=== PATIENT | female | born 1990 | race Caucasian/White ===

== ENCOUNTER 2016-11-01 15:43 | Emergency (ER) | payer OTHER ==
[2016-11-01 16:02] VITALS: BP 93/55
--- NOTE | 2016-11-25 20:01 | UC ---
Isra Lucas Alok, scribed for Evonne Huggins DO on 11/25/16 at 2001 . Skin Complaint HPI - HPI Summary HPI Summary: 26 y/o female presents with c/o sinus pain, congestion, WALDRON, nasal discharge, cough, ear pressure, for over the last 4 weeks. Pt also presents with c/o painful red lesion on her right forearm. Pt is an IV drug user, in outpatient treatment for heroin addiction. Pt reports that she recently slipped and started using again briefly within the past two weeks. She states that she has had rashes like this in the past, including abscesses as a result of IV drug use. She also reports that she is back in treatment now and doing better. She denies CP, SOB, fever, chills, N/V, abd pain, urinary changes, muscle aches. - History of Current Complaint Chief Complaint: UCRespiratory Time Seen by Provider: 11/01/16 16:20 Stated Complaint: SINUS CONGESTION, AND RASH Hx Obtained From: Patient Hx Last Menstrual Period: 10/28/16 ?: No Onset/Duration: Gradual Onset Skin Exposure Onset/Duration: Weeks Ago Timing: Constant Onset Severity: Moderate Current Severity: Moderate Pain Intensity: 6 Pain Scale Used: 0-10 Numeric Location: Discrete - Right arm Character: Redness Aggravating: Nothing Alleviating: Nothing Associated Signs & Symptoms: Positive: Cough, Rash. Negative: Nausea, Vomiting , Difficulty Breathing, Fever, Chills, Chest Pain, Abdominal Pain, Lightheadedness, Drainage, Red Streaks - Allergy/Home Medications Allergies/Adverse Reactions: Allergies Allergy/AdvReac Type Severity Reaction Status Date / Time Tree Nuts Allergy Anaphylatic Verified 11/01/16 16:03 Shock Review of Systems Constitutional: Negative Skin: Rash Eyes: Negative ENT: Nasal Discharge Respiratory: Cough Cardiovascular: Negative Gastrointestinal: Negative Genitourinary: Negative Motor: Negative Neurovascular: Negative Musculoskeletal: Negative Neurological: Headache Psychological: Negative All Other Systems Reviewed And Are Negative: Yes PMH/Surg Hx/FS Hx/Imm Hx - Additional Past Medical History Additional PMH: h/o iv drug use Cardiovascular History Of: Reports: Cardiac Disorders - HEART MURMUR - Surgical History Surgical History: Yes Surgery Procedure, Year, and Place: T&A - Family History Known Family History: Negative: Cardiac Disease, Hypertension, Diabetes - Social History Alcohol Use: Occasionally Substance Use Type: Heroin Smoking Status (MU): Heavy Every Day Tobacco Smoker Type: Cigarettes Amount Used/How Often: 1 PPD Length of Time of Smoking/Using Tobacco: 9 Years Have You Smoked in the Last Year: Yes When Did the Patient Quit Smoking/Using Tobacco: 9 MOS AGO Cessation Counseling: Patient Advised to Stop - Immunization History Most Recent Influenza Vaccination: Not the Season Physical Exam Triage Information Reviewed: Yes Appearance: Well-Appearing, No Pain Distress, Well-Nourished Vital Signs: Initial Vital Signs Temp 99.4 F 11/01/16 15:57 Pulse 78 11/01/16 15:57 Resp 18 11/01/16 15:57 BP 93/55 11/01/16 15:57 Pulse Ox 99 11/01/16 15:57 Vital Signs Reviewed: Yes Eyes: Positive: Conjunctiva Clear ENT: Positive: Pharynx normal, Nasal congestion, Nasal drainage, TMs normal, Tonsillar swelling, Other: - Sinus tenderness. Negative: Tonsillar exudate, Trismus, Muffled/hoarse voice Neck: Positive: Supple, Nontender Respiratory: Positive: Lungs clear, Normal breath sounds, No respiratory distress, No accessory muscle use Cardiovascular: Positive: RRR, No Murmur Musculoskeletal Exam: Normal Neurological: Positive: Alert, Muscle Tone Normal Psychological Exam: Normal Psychological: Positive: Age Appropriate Behavior Skin: Positive: Other - 8x10 cm erythemal area on her forearm that is possive for calor, and tenderness. Additionally, area of induration that is 4x3 cm in the center of the lesion. The surrounding forearm is notable for injection sites. No fluctulance, no drainage. Course/Dx - Differential Diagnoses - Skin Complaint Differential Diagnoses: Abscess, Cellulitis, Tinea, Urticaria - Diagnoses Provider Diagnoses: sinsusitis, abscess Discharge - Discharge Plan Condition: Stable Disposition: HOME Prescriptions: Cephalexin CAP* [Keflex CAP*] 500 mg PO BID #20 cap Sulfamethox/Trimethoprim DS* [Bactrim DS 800/160 TAB*] 1 tab PO BID #20 tab Patient Education Materials: Sinusitis (ED), Abscess (ED) Referrals: Jamir House MD [Medical Doctor] - (Follow up in 2 days for re-evaluation. This follow up visit is important, we want to know that you are improving. If you can not get in with your PCP, return here for re-evaluation. ) Additional Instructions: TRY USING THE NETTI POT IN THE MORNINGS DISCUSSED. YOU MUST ALWAYS USE CLEAN WATER. REMEMBER, POSTURE IS AN IMPORTANT FACTOR IN SINUS DRAINAGE. MOVE YOUR NECK, BREATHE. ANTIBIOTIC THERAPY:FOR BOTH SINUS AND SKIN INFECTION You have been given an antibiotic prescription. It's important that you take all the medication, unless instructed otherwise by your physician. Failure to complete the entire course can result in relapse of your condition. Common side effects of antibiotics include nausea, intestinal cramping, or diarrhea. Women may develop vaginal yeast infections, and babies can get yeast (thrush) in the mouth following the use of antibiotics. Contact your physician if you develop significant side effects from this medication. Allergy to this antibiotic can result in hives, wheezing, faintness, or itching. If symptoms of allergy occur, stop the medication and call the doctor. ANY TIME YOU TAKE AN ANTIBIOTIC, IT IS IMPORTANT TO REPLENISH THE BODY'S BALANCE OF "GOOD" BACTERIA BY EATING HIGH QUALITY CULTURED FOOD SUCH YOGURT, SAURKRAUT OR LESLEY CHI AND/OR TAKING A PROBIOTIC SUPPLEMENT. Follow up in 2 days for re-evaluation. This follow up visit is important, we want to know that you are improving. If you can not get in with your PCP, return here for re-evaluation. The documentation as recorded by the Isra urrutia Alok accurately reflects the service I personally performed and the decisions made by me, Evonne Huggins DO.
== END 2016-11-01 17:47 | disposition home or self-care (01) ==
LOC: UCEAST 15:43
DX: J32.9 Chronic sinusitis, unspecified (principal); L02.413 Cutaneous abscess of right upper limb; F11.90 Opioid use, unspecified, uncomplicated; F17.210 Nicotine dependence, cigarettes, uncomplicated
CPT/HCPCS: 99212; G0463

== ENCOUNTER → 2017-01-06 00:17 | Emergency (ER) | payer MEDICAID, OTHER ==
[2017-01-06 01:10] VITALS: BP 108/69
[2017-01-06 02:23] LABS: Hematocrit 41 % (35-47); Hemoglobin 13.2 g/dl (12.0-16.0); Mean Corpuscular HGB Conc 33 g/dl (31-36); Mean Corpuscular Hemoglobin 26 pg (27-31); Mean Corpuscular Volume 81 fL (80-97); Mean Platelet Volume 7 um3 (7.4-10.4); Red Cell Distribution Width 16 % (10.5-15); White Blood Count 11.8 10^3/ul (3.5-10.8)
[2017-01-06 02:35] LABS: Acetaminophen < 15 mcg/mL; Alcohol < 10 mg/dL (<10); Salicylate < 2.50 mg/dL (<30)
[2017-01-06 02:36] LABS: ALT 101 U/L (7-52); AST 108 U/L (13-39); Alkaline Phosphatase 146 U/L (34-104); Anion Gap 7 mmol/L (2-11); BUN/Creatinine Ratio 13.3 (8-20); Blood Urea Nitrogen 8 mg/dL (6-24); CO2 Carbon Dioxide 25 mmol/L (22-32); Calcium 9.7 mg/dL (8.6-10.3); Chloride 102 mmol/L (101-111); EGFR African American 154.2 (>60); EGFR Non-African American 119.9 (>60); Globulin 4.7 g/dL (2-4); Glucose 89 mg/dL (70-100); Potassium 3.7 mmol/L (3.5-5.0); Sodium 134 mmol/L (133-145); Total Protein 8.7 g/dL (6.4-8.9)
--- NOTE | 2017-01-06 02:38 | ED ---
Substance Abuse/Use - HPI Summary HPI Summary: Patient RENNY after use or heroin and alcohol this afternoon at a hotel after being discharged from rehab. She states she feels OK and will go back to rehab after discharge. She denies N/V. She denies pain or WALDRON. She denies SI/HI or self injurious behavior. She denies previous depression or anxiety but endorses a long history of heroin use. - History Of Current Complaint Chief Complaint: EDSubstanceAbuse Stated Complaint: HEROIN USE Time Seen by Provider: 01/06/17 01:12 Hx Obtained From: Patient ?: No Onset/Duration of Drug/ETOH Abuse: Minutes Ingestion History: Type/Name Of Drug - heroin, Amount Ingested - unknown Overdose Characteristics: IV Timing Of Abuse: Daily Severity Initially: Moderate Severity Currently: Mild Aggravating Factor(s): Nothing Alleviating Factor(s): Nothing Associated Signs And Symptoms: Negative Related Hx: Drug/Alcohol Last Used @ - today, Possible Multi Drug Ingestion, Prior Drug Abuse Counseling/Admission - Risk Factor(s) Completed Suicide Risk Factors: Negative - Allergies/Home Medications Allergies/Adverse Reactions: Allergies Allergy/AdvReac Type Severity Reaction Status Date / Time No Known Allergies Allergy Verified 01/06/17 00:26 PMH/Surg Hx/FS Hx/Imm Hx Previously Healthy: Yes - Immunization History Date of Tetanus Vaccine: utd Date of Influenza Vaccine: unk Hx Pertussis Vaccination: No Immunizations Up to Date: Yes Infectious Disease History: No Infectious Disease History: Denies: Traveled Outside the [place] in Last 30 Days - Social History Occupation: Unemployed Lives: Alone Alcohol Use: Occasionally Hx Substance Use: Yes Substance Use Type: Reports: Cocaine, Heroin, Marijuana, Other Substance Use Comment - Amount & Last Used: pt using heroin 1/2 gm, and drinking vodka Hx Tobacco Use: Yes Smoking Status (MU): Light Every Day Tobacco Smoker Review of Systems Constitutional: Negative ENT: Negative Cardiovascular: Negative Gastrointestinal: Negative Genitourinary: Negative Positive: no symptoms reported, see HPI Musculoskeletal: Negative Skin: Negative Psychological: Normal All Other Systems Reviewed And Are Negative: Yes Physical Exam Triage Information Reviewed: Yes Vital Signs On Initial Exam: Initial Vitals Temp Pulse Resp BP Pulse Ox 102 F 122 16 108/69 98 01/06/17 00:57 01/06/17 00:57 01/06/17 00:57 01/06/17 00:57 01/06/17 00:57 Vital Signs Reviewed: Yes Appearance: Positive: Well-Appearing, Well-Nourished Skin: Positive: Warm, Skin Color Reflects Adequate Perfusion Head/Face: Positive: Normal Head/Face Inspection Eyes: Positive: EOMI, ANDREA, Conjunctiva Clear Cardiovascular: Positive: Normal, RRR - Thaira Coma Scale Coma Scale Total: 15 Diagnostics - Vital Signs Vital Signs Temp Pulse Resp BP Pulse Ox 01/06/17 00:57 102 F 122 16 108/69 98 - Laboratory Lab Results: Lab Results 01/06/17 Range/Units 00:43 WBC 11.8 H (3.5-10.8) 10^3/ul RBC 5.00 (4.0-5.4) 10^6/ul Hgb 13.2 (12.0-16.0) g/dl Hct 41 (35-47) % MCV 81 (80-97) fL MCH 26 L (27-31) pg MCHC 33 (31-36) g/dl RDW 16 H (10.5-15) % Plt Count 299 (150-450) 10^3/ul MPV 7 L (7.4-10.4) um3 Neut % (Auto) 92.6 H (38-83) % Lymph % (Auto) 5.9 L (25-47) % Hinds % (Auto) 1.0 (1-9) % Eos % (Auto) 0.2 (0-6) % Baso % (Auto) 0.3 (0-2) % Absolute Neuts (auto) 10.9 H (1.5-7.7) 10^3/ul Absolute Lymphs (auto) 0.7 L (1.0-4.8) 10^3/ul Absolute Monos (auto) 0.1 (0-0.8) 10^3/ul Absolute Eos (auto) 0 (0-0.6) 10^3/ul Absolute Basos (auto) 0 (0-0.2) 10^3/ul Absolute Nucleated RBC 0.01 10^3/ul Nucleated RBC % 0.1 Result Diagrams: 01/06/17 00:43 01/06/17 00:43 Lab Statement: Any lab studies that have been ordered have been reviewed, and results considered in the medical decision making process. Course/Dx - Course Course Of Treatment: RN attempted 4 times to obtain an IV. Patient eventually refused. labs were drawn, but IV was not patent. Labs look OK. Patient is stable and has a ride home. Provider encouraged no drug use and return to rehab [facility]. Records for rehab given to patient upon discharge. She has a ride home. - Diagnoses Differential Diagnosis/HQI/PQRI: Positive: Anxiety, Drug Abuse, Drug Withdrawal Provider Diagnoses: Drug abuse Discharge - Discharge Plan Condition: Stable Disposition: HOME Patient Education Materials: Adult Overdose (ED) Referrals: Non Staff,Doctor [Primary Care Provider] - Additional Instructions: Follow up with PCP. Recommended to attend rehabilitation. If symptoms become worse, come back to ED.
[2017-01-06 03:05] LABS: Urine Bilirubin Negative (Negative); Urine Glucose Negative (Negative); Urine Nitrite Negative (Negative)
[2017-01-06 03:29] LABS: Benzodiazepine Urine Screen Presumptive Positive (None Detect)
== END | disposition home or self-care (01) ==
LOC: ED 00:17 → MERGE 00:17
DX: F19.10 Other psychoactive substance abuse, uncomplicated (principal); F17.210 Nicotine dependence, cigarettes, uncomplicated
CPT/HCPCS: 36415; 80053; 80307; 80320; 80329; 81003; 83605; 84702; 85025; 93005; 99283; G0480

== ENCOUNTER 2017-01-17 14:54 | Emergency (ER) | payer OTHER ==
[2017-01-17 16:53] LABS: Hematocrit 37 % (35-47); Hemoglobin 12.3 g/dl (12.0-16.0); Mean Corpuscular HGB Conc 33 g/dl (31-36); Mean Corpuscular Hemoglobin 26 pg (27-31); Mean Corpuscular Volume 80 fL (80-97); Mean Platelet Volume 7 um3 (7.4-10.4); Red Blood Count 4.71 10^6/ul (4.0-5.4); Red Cell Distribution Width 16 % (10.5-15)
[2017-01-17 17:08] LABS: Albumin 3.9 g/dL (3.2-5.2); Calcium 9.4 mg/dL (8.6-10.3); EGFR African American 145.8 (>60); EGFR Non-African American 113.4 (>60); Globulin 4.5 g/dL (2-4); Potassium 3.8 mmol/L (3.5-5.0); Total Bilirubin 0.3 mg/dL (0.2-1.0); Total Protein 8.4 g/dL (6.4-8.9)
[2017-01-17 18:00] LABS: Urine Bacteria Absent (Absent); Urine Bilirubin Negative (Negative); Urine Glucose Negative (Negative); Urine Nitrite Negative (Negative)
[2017-01-17 18:22] VITALS: BP 100/65
[2017-01-17] MEDS ORDERED: Sulfamethox/Trimethoprim DS 800/160* TAB PO ONE (19:13)
--- NOTE | 2017-01-17 19:14 | ED ---
Skin Complaint - HPI Summary HPI Summary: 26M presents with left arm abscess and needing labs for potential admission for detox unit. States needs CBC, CMP, EKG, and urine. Is trying to potential get admit to [facility]. She was told that she was admitted but then she called them and they told her that they dolt have any meds available. I called and they said they need to have labs and ekg first which faxed. She has been using heronin 1gram a day. has been inpatient unit before for detox. She shot up on left forearm 5 days ago and noticed an abscess there 4 days ago. She says the swelling in the area has gone down. - History of Current Complaint Chief Complaint: EDDetoxRequest Time Seen by Provider: 01/17/17 17:58 Stated Complaint: DETOX SCREENING, AND ARM ABCESS Hx Last Menstrual Period: 10/28/16 Pain Intensity: 8 - Allergy/Home Medications Allergies/Adverse Reactions: Allergies Allergy/AdvReac Type Severity Reaction Status Date / Time Tree Nuts Allergy Anaphylatic Verified 11/01/16 16:03 Shock PMH/Surg Hx/FS Hx/Imm Hx Endocrine/Hematology History: Denies: Hx Diabetes Cardiovascular History: Denies: Hx Hypertension Respiratory History: Denies: Hx Asthma - Surgical History Surgery Procedure, Year, and Place: T&A - Immunization History Date of Tetanus Vaccine: utd Date of Influenza Vaccine: unk Infectious Disease History: Denies: Hx Clostridium Difficile, Hx Hepatitis, Hx Human Immunodeficiency Virus (HIV), Hx of Known/Suspected MRSA, Hx Shingles, Hx Tuberculosis, Hx Known/ Suspected VRE, Hx Known/Suspected VRSA, History Other Infectious Disease, Traveled Outside the [place] in Last 30 Days - Family History Known Family History: Positive: None Negative: Cardiac Disease, Hypertension, Diabetes - Social History Alcohol Use: Occasionally Hx Substance Use: Yes Substance Use Type: Reports: Cocaine, Marijuana, Heroin, Other Substance Use Comment - Amount & Last Used: pt using heroin 1/2 gm, and drinking vodka Hx Tobacco Use: Yes Smoking Status (MU): Light Every Day Tobacco Smoker Type: Cigarettes Amount Used/How Often: 1 PPD Length of Time of Smoking/Using Tobacco: 9 Years Have You Smoked in the Last Year: Yes Review of Systems Negative: Fever Negative: Chest Pain Negative: Shortness Of Breath Positive: Other - abscess left forearm All Other Systems Reviewed And Are Negative: Yes Physical Exam Triage Information Reviewed: Yes Vital Signs On Initial Exam: Initial Vitals Temp Pulse Resp BP Pulse Ox 98.9 F 95 18 105/49 99 01/17/17 15:03 01/17/17 15:03 01/17/17 15:03 01/17/17 15:03 01/17/17 15:03 Vital Signs Reviewed: Yes Appearance: Positive: Well-Appearing Skin: Positive: Warm, Dry, Other - 3cm by 2cm abscess of left forearm with no surrounding erythema Head/Face: Positive: Normal Head/Face Inspection Eyes: Positive: Normal, Conjunctiva Clear ENT: Positive: Normal ENT inspection, Pharynx normal, TMs normal Respiratory/Lung Sounds: Positive: Clear to Auscultation, Breath Sounds Present Cardiovascular: Positive: Normal, RRR - Tahira Coma Scale Coma Scale Total: 15 Procedures - Incision and Drainage Site: left forearm Anesthesia: Local Instrument(s): Scalpel Diagnostics - Vital Signs Vital Signs Temp Pulse Resp BP Pulse Ox 01/17/17 18:15 98.5 F 81 16 100/65 98 01/17/17 16:47 98.2 F 74 18 103/43 97 01/17/17 15:03 98.9 F 95 18 105/49 99 - Laboratory Lab Results: Lab Results 01/17/17 01/17/17 01/17/17 Range/Units 16:45 16:45 17:36 WBC 7.0 (3.5-10.8) 10^3/ul RBC 4.71 (4.0-5.4) 10^6/ul Hgb 12.3 (12.0-16.0) g/dl Hct 37 (35-47) % MCV 80 (80-97) fL MCH 26 L (27-31) pg MCHC 33 (31-36) g/dl RDW 16 H (10.5-15) % Plt Count 432 (150-450) 10^3/ul MPV 7 L (7.4-10.4) um3 Neut % (Auto) 49.9 (38-83) % Lymph % (Auto) 37.4 (25-47) % Kendall % (Auto) 8.3 (1-9) % Eos % (Auto) 3.4 (0-6) % Baso % (Auto) 1.0 (0-2) % Absolute Neuts (auto) 3.5 (1.5-7.7) 10^3/ul Absolute Lymphs (auto) 2.6 (1.0-4.8) 10^3/ul Absolute Monos (auto) 0.6 (0-0.8) 10^3/ul Absolute Eos (auto) 0.2 (0-0.6) 10^3/ul Absolute Basos (auto) 0.1 (0-0.2) 10^3/ul Absolute Nucleated RBC 0.01 10^3/ul Nucleated RBC % 0.1 Sodium 136 (133-145) mmol/L Potassium 3.8 (3.5-5.0) mmol/L Chloride 102 (101-111) mmol/L Carbon Dioxide 25 (22-32) mmol/L Anion Gap 9 (2-11) mmol/L BUN 12 (6-24) mg/dL Creatinine 0.63 (0.51-0.95) mg/dL Est GFR ( Amer) 145.8 (>60) Est GFR (Non-Af Amer) 113.4 (>60) BUN/Creatinine Ratio 19.0 (8-20) Glucose 132 H (70-100) mg/dL Calcium 9.4 (8.6-10.3) mg/dL Total Bilirubin 0.30 (0.2-1.0) mg/dL AST 54 H (13-39) U/L ALT 42 (7-52) U/L Alkaline Phosphatase 134 H (34-104) U/L CK-MB (CK-2) 0.6 (0.6-6.3) ng/mL Total Protein 8.4 (6.4-8.9) g/dL Albumin 3.9 (3.2-5.2) g/dL Globulin 4.5 H (2-4) g/dL Albumin/Globulin Ratio 0.9 L (1-3) Urine Color Michelle Urine Appearance Turbid Urine pH 5.0 (5-9) Ur Specific [place] 1.033 H (1.010-1.030) Urine Protein 1+(30 mg/dl) H (Negative) Urine Ketones Trace H (Negative) Urine Blood Negative (Negative) Urine Nitrate Negative (Negative) Urine Bilirubin Negative (Negative) Urine Urobilinogen Negative (Negative) Ur Leukocyte Esterase Trace H (Negative) Urine WBC (Auto) 2+(11-20/hpf) H (Absent) Urine RBC (Auto) Trace(0-2/hpf) (Absent) Ur Squamous Epith Cells Present H (Absent) Amorphous Crystals Present H (Absent) Urine Bacteria Absent (Absent) Urine Glucose Negative (Negative) Urine Ascorbic Acid * H (Negative) Result Diagrams: 01/17/17 16:45 01/17/17 16:45 Lab Statement: Any lab studies that have been ordered have been reviewed, and results considered in the medical decision making process. - EKG No standard instances Cardiac Rate: NL EKG Rhythm: Sinus Rhythm ST Segment: Normal Course/Dx - Course Course Of Treatment: 26F presents for lab work to try to get into detox center. labs and EKG looked fine. denies any UTI symptoms. has abscess on left forearm for 4 days. denies any fever or spreading redness. I&D abscess and placed on bactrim. patient understands adn agrees with plan - Differential Diagnoses - Skin Complaint Differential Diagnoses: Abscess, Cellulitis, Contact Dermatitis - Diagnoses Provider Diagnoses: Routine lab draw, Abscess of left forearm Discharge - Discharge Plan Condition: Good Disposition: HOME Prescriptions: Sulfamethox/Trimethoprim DS* [Bactrim DS 800/160 TAB*] 1 tab PO BID #13 tab Patient Education Materials: Incision and Drainage (ED) Forms: *Gen. Provider Communication Referrals: No Primary Care Phys,NOPCP [Primary Care Provider] - Additional Instructions: Take antibiotic twice a day for 7 days, first dose given in ED Place warm compresses on area follow up with Mark montaño Return to ED if develop fever, spread redness, or any new or worsening symptoms
== END 2017-01-17 19:40 | disposition home or self-care (01) ==
LOC: ED 14:54
DX: L02.414 Cutaneous abscess of left upper limb (principal); F17.210 Nicotine dependence, cigarettes, uncomplicated
CPT/HCPCS: 36415; 80053; 81003; 81015; 82553; 85025; 87086; 93005; 99282; A9270-GY

== ENCOUNTER 2017-05-21 17:08 | Observation (INO) | payer OTHER ==
--- NOTE | 2017-05-21 17:49 | ED ---
- HPI Summary HPI Summary: 26F LMP 6 weeks ago presents with LLQ pain for a week. She admits to spotting for past 3 weeks. She is at [facility] for heroin and had test done a week ago. They sent here to [facility] today who could not see on ultrasound so had outpatient ultrasound here that shows ectopic adjacent to left ovary. She states pain is intermittent. She admits to intermittent nausea and vomiting. She denies any fever. Pain is 4/10 currently. Her previous was medical induced in the past. last meal was 12:30pm. - History of Current Complaint Chief Complaint: EDAbdPain Stated Complaint: ECTOPIC SEEN ON ULTRA SOUND Time Seen by Provider: 05/21/17 17:40 Pain Intensity: 0 - Assessment Hx Now: No - Allergies/Home Medications Allergies/Adverse Reactions: Allergies Allergy/AdvReac Type Severity Reaction Status Date / Time Tree Nuts Allergy Anaphylatic Verified 05/21/17 17:22 Shock PMH/Surg Hx/FS Hx/Imm Hx Endocrine/Hematology History: Denies: Hx Diabetes Cardiovascular History: Denies: Hx Hypertension Respiratory History: Denies: Hx Asthma - Surgical History Surgery Procedure, Year, and Place: T&A - Immunization History Date of Tetanus Vaccine: utd Date of Influenza Vaccine: unk Infectious Disease History: No Infectious Disease History: Denies: Hx Clostridium Difficile, Hx Hepatitis, Hx Human Immunodeficiency Virus (HIV), Hx of Known/Suspected MRSA, Hx Shingles, Hx Tuberculosis, Hx Known/ Suspected VRE, Hx Known/Suspected VRSA, History Other Infectious Disease, Traveled Outside the [place] in Last 30 Days - Family History Known Family History: Positive: None Negative: Cardiac Disease, Hypertension, Diabetes - Social History Alcohol Use: Occasionally Hx Substance Use: Yes Substance Use Type: Reports: Cocaine, Marijuana, Heroin, Other Substance Use Comment - Amount & Last Used: pt using heroin 1/2 gm, and drinking vodka Hx Tobacco Use: Yes Smoking Status (MU): Light Every Day Tobacco Smoker Type: Cigarettes Amount Used/How Often: 1 PPD Length of Time of Smoking/Using Tobacco: 9 Years Have You Smoked in the Last Year: Yes Review of Systems Negative: Fever Negative: Chest Pain Negative: Shortness Of Breath Positive: Abdominal Pain, Vomiting, Other - vaginal spotting. Negative: Diarrhea, Nausea All Other Systems Reviewed And Are Negative: Yes Physical Exam - Physical Exam Triage Information Reviewed: Yes Vital Signs Reviewed: Yes Appearance: Positive: Well-Appearing Skin: Positive: Warm, Dry Head/Face: Positive: Normal Head/Face Inspection Eyes: Positive: Normal, EOMI, ANDREA, Conjunctiva Clear ENT: Positive: Normal ENT inspection, Pharynx normal, TMs normal Respiratory/Lung Sounds: Positive: Clear to Auscultation, Breath Sounds Present Cardiovascular: Positive: Normal, RRR Abdomen Description: Positive: Soft, Other: - tenderness in LLQ Bowel Sounds: Positive: Present Diagnostics - Vital Signs Vital Signs Temp Pulse Resp BP Pulse Ox 05/21/17 17:21 98.6 F 107 20 130/92 99 - Laboratory Result Diagrams: 05/21/17 17:40 05/21/17 17:40 Lab Statement: Any lab studies that have been ordered have been reviewed, and results considered in the medical decision making process. - Ultrasound No standard instances Ultrasound Interpretation: Positive (See Comments) - ectopic adjacent to left ovary with crown rump length corresponding to gestational age of 7 weeks adn 3 days. no free intarperitoenal fluid. FHR 159 beats per min Ultrasound Interpretation Completed By: Radiologist Course/Dx - Course Course Of Treatment: 26F LMP 6 weeks ago presents with LLQ pain for a week. She admits to spotting for past 3 weeks. She is at [facility] for [facility] and had test done a week ago. They sent here to [facility] today who could not see on ultrasound so had outpatient ultrasound here that shows ectopic adjacent to left ovary. She states pain is intermittent. She admits to intermittent nausea and vomiting. She denies any fever. Pain is 4/10 currently. on exam has tenderness in LLQ. u/s shows ectopic adjacent to left ovary with gestation age of 7 weeks with GHR of 169. h/h stable. dr viveros is going to take to OR. - Differential Diagnosis/HQI/PQRI: Spontaneous , Ectopic , Intrauterine - Diagnoses Provider Diagnoses: Ectopic - Provider Notifications Discussed Care Of Patient With: dr viveros Time Discussed With Above Provider: 17:30 - will likely take to OR Discharge - Discharge Plan Condition: Guarded Disposition: ADMITTED TO [facility] Referrals: No Primary Care Phys,NOPCP [Primary Care Provider] -
[2017-05-21 17:51] LABS: Hematocrit 41 % (35-47); Hemoglobin 14.4 g/dl (12.0-16.0); Mean Corpuscular HGB Conc 35 g/dl (31-36); Mean Corpuscular Hemoglobin 30 pg (27-31); Mean Corpuscular Volume 86 fL (80-97); Mean Platelet Volume 7 um3 (7.4-10.4); Red Blood Count 4.79 10^6/ul (4.0-5.4); Red Cell Distribution Width 15 % (10.5-15); White Blood Count 9.7 10^3/ul (3.5-10.8)
[2017-05-21 18:10] LABS: ALT 73 U/L (7-52); Albumin 4.5 g/dL (3.2-5.2); Alkaline Phosphatase 69 U/L (34-104); BUN/Creatinine Ratio 20.8 (8-20); Blood Urea Nitrogen 11 mg/dL (6-24); CO2 Carbon Dioxide 25 mmol/L (22-32); Calcium 9.9 mg/dL (8.6-10.3); Chloride 104 mmol/L (101-111); EGFR Non-African American 138.4 (>60); Globulin 4.2 g/dL (2-4); Glucose 104 mg/dL (70-100); Sodium 136 mmol/L (133-145); Total Protein 8.7 g/dL (6.4-8.9)
[2017-05-21 18:22] LABS: Anion Gap 7 mmol/L (2-11)
[2017-05-21] MEDS ORDERED: Famotidine IV* 10 MG/ML 2 ML (20 mg) ONE (19:31)
[2017-05-21] MEDS ORDERED: Famotidine IV* 10 MG/ML 2 ML (20 mg) IV ONE (19:33)
[2017-05-21] MEDS ORDERED: fentaNYL* 50 MCG/ML 2 ML VIAL (100 MCG VIAL) ONE ×2 (19:56→21:18)
[2017-05-21] MEDS ORDERED: Ondansetron INJ* 2 MG/ML VIAL ONE (19:57)
[2017-05-21] MEDS ORDERED: Lidocaine 2% PF * 5 ML VIAL ONE (19:57)
[2017-05-21] MEDS ORDERED: Midazolam* 1 MG/ML 5 ML VIAL (5 MG) ONE (19:57)
[2017-05-21] MEDS ORDERED: Rocuronium* 10 MG/ML VIAL ONE (19:57)
[2017-05-21] MEDS ORDERED: DiMENhydriNATE IV* 50 MG/ML VIAL ONE ×2 (19:57→22:32)
[2017-05-21] MEDS ORDERED: Ketorolac INJ* 30 MG/ML 1 ML VIAL ONE (19:57)
[2017-05-21] MEDS ORDERED: Propofol* 10 MG/ML 20 ML BTL IV PUSH ONE (19:57)
[2017-05-21] MEDS ORDERED: Succinylcholine* 20 MG/ML 10 ML VIAL ONE (19:57)
[2017-05-21] MEDS ORDERED: Dexamethasone IV* 4 MG/ML 1 ML (4 MG) ONE (19:57)
[2017-05-21] MEDS ORDERED: ceFAZolin 1 GM VIAL(*) ONE (21:16)
[2017-05-21] MEDS ORDERED: Bupivacaine 0.5% SDV PF* 30 ML VIAL ONE (21:20)
[2017-05-21] MEDS ORDERED: DiMENhydriNATE IV* 50 MG/ML VIAL IV PUSH PRN (21:45)
[2017-05-21] MEDS ORDERED: HYDROmorphone INJ* 1 MG/ML CARPUJECT SYRINGE ONE ×2 (21:59→22:27)
[2017-05-21] MEDS ORDERED: oxyCODONE/Acetamin 5/325 MG* TAB ONE ×2 (22:27→22:59)
[2017-05-21] MEDS: HYDROmorphone INJ* 1 MG/ML CARPUJECT SYRINGE IV PRN ×5 (22:29→23:01)
[2017-05-21] MEDS: oxyCODONE/Acetamin 5/325 MG* TAB PO PRN ×2 (22:39→22:59)
--- NOTE | 2017-05-21 23:01 | CONS ---
EMERGENCY ROOM CONSULTATION/PREOPERATIVE HISTORY AND PHYSICAL: DATE OF CONSULTATION: 05/21/17 TIME: 6:30 p.m. HISTORY OF PRESENT ILLNESS: Ms. Upton is a 26-year-old 3, para 1-0-1- 1 who presented to the emergency room with complaints of left lower quadrant abdominal pain intermittently for the last week. She was sent from [facility] to emergency room where she was diagnosed with a 7-week left adnexal ectopic by ultrasound. She is in the emergency room, stable and her last meal was at noon. PAST MEDICAL HISTORY: She is a [employer] resident for illicit substance abuse, hepatitis C diagnosed 1 week ago, HIV negative per patient, cardiac murmur, which the patient describes as a leaky valve, anxiety, and insomnia. PAST SURGICAL HISTORY: Tonsils and adenoids. OBSTETRICAL HISTORY: One full term spontaneous vaginal delivery, one elective medical . GYNECOLOGICAL HISTORY: Positive history of pelvic inflammatory disease. MEDICATIONS: 1. Metoprolol 25 mg daily. 2. Gabapentin 300 mg twice a day. 3. Trazodone 100 mg at night. ALLERGIES: To TREE NUTS. No known drug allergies. FAMILY HISTORY: Father, cardiac disease, prostate cancer, and osteoporosis. Mother is alive and well. Brother amyloidosis. REVIEW OF SYSTEMS: She denied fevers, chills, nausea, vomiting or diarrhea. No urinary signs or symptoms. Admitted to left lower quadrant abdominal pain and vaginal spotting. She denied chest pain, shortness of breath, and in the emergency room, she is alert, awake, and oriented x3. She was in bed with her significant other in no apparent distress. PHYSICAL EXAMINATION: Vital Signs: Temperature was 98.6, pulse 90, respiratory rate of 20, blood pressure of 130/92. Lungs were clear to auscultation bilaterally. No CVA tenderness. Cardiovascular: Regular rate and rhythm. Abdomen: Soft, nontender, nondistended. Positive bowel sounds with positive left lower quadrant tenderness on palpation. Pelvic exam was deferred. DIAGNOSTIC STUDIES/LAB DATA: Labs, CBC show a hemoglobin and hematocrit of 14.4 /41 with a normal white blood cell count and platelet count. PTT/INR within normal limits, elevated ALT at 73 consistent with hepatitis C. She had an ultrasound consistent with a live 7-week, left adnexal ectopic . IMPRESSION: A 26-year-old with an ectopic at an advanced gestational age precluding chemotherapy. PLAN: Laparoscopy, left salpingectomy with possible salpingo-oophorectomy, possible laparotomy. The patient and the partner were both counseled on the indications, contraindications, risks, benefits, common side effects, common complications of the procedure prior to consent. [id number] #: [id number] MTDD
[2017-05-22] MEDS: Ibuprofen TAB* 600 MG PO PRN ×2 (00:33→06:36)
[2017-05-22] MEDS: oxyCODONE/Acetamin 5/325 MG* TAB PO PRN ×2 (03:09→07:51)
[2017-05-22 07:53] VITALS: BP 105/92
[2017-05-22 11:12] LABS: Call Hep C TO BE CALLED
--- NOTE | 2017-05-23 05:25 | OP ---
CC: Dr. Lynsey Carpenter* DATE OF OPERATION: 05/21/17 - ROOM #331 DATE OF : 88 TIME: 10:10 p.m. SURGEON: Kike Luz MD PUBLIC RELATIONS SENIOR ASSOCIATE: Lynsey Carpenter MD ANESTHESIA: General anesthetic with endotracheal intubation. PRE-OP DIAGNOSIS: Left adnexal ectopic . POST-OP DIAGNOSIS: Left tubal . OPERATIVE PROCEDURE: Laparoscopic left salpingectomy. ESTIMATED BLOOD LOSS: None. SPECIMENS SENT TO PATHOLOGY: Left tube with ectopic . IV FLUIDS: She received 1700 cc of IV crystalloid fluid. URINE OUTPUT: 800 cc of clear urine. FINDINGS: She had a normal uterus, bowel, and bladder with an intact left tubal . She had a normal left ovary and normal right tube and ovary. There were no complications during the procedure. DESCRIPTION OF PROCEDURE: The patient was taken to the operating room where she was identified. She was placed on the operating table where a general anesthetic with endotracheal intubation was obtained without difficulty. She was then placed in a dorsal lithotomy position, prepped and draped in a normal sterile fashion. Attention was then brought on to the patient's perineum where the bladder was catheterized with a Lundy catheter and drained of clear urine. A side view speculum was inserted into the patient's vagina. The cervix was identified, grasped with a single-tooth tenaculum and through the cervix, a clear view manipulator was introduced. The balloon and ClearView manipulator was insufflated with 4 cc of sterile water. At this point, a single-tooth tenaculum and speculum was removed from the patient's vagina. Attention was then brought on to the patient's abdomen where a 1 cm infraumbilical skin incision was made in the patient's abdomen. The incision was carried down through underlying layer of fascia. The fascia was then grasped with Lukasz clamps, brought out through the incision and incised with a knife sharply. Entry into the patient's abdomen and peritoneum was confirmed using a Jackie clamp. The Lukasz clamps on the fascia were then replaced with 0 Polysorb sutures and through this incision, a 10-mm blunt trocar was introduced. The balloon and the trocar were insufflated with 20 cc of air and attached to CO2 gas. The patient's abdomen was then insufflated. Through this trocar, a 10-mm scope was introduced. The patient was then placed in a slight Trendelenburg position and a survey of the patient's pelvis revealed findings as noted above. Two trocars were then introduced under direct visualization, one in the right upper quadrant of the patient's abdomen, the second one in the left upper quadrant of the patient's abdomen. I then proceeded to grasp the ectopic at the fimbriated end of the fallopian tube on the left side and with a LigaSure device, I was able to, with coagulation and sharp dissection, remove the tube without any complications. At this point, the 10-mm scope was removed from the patient's umbilicus. A 5-mm scope was used at the right upper quadrant trocar and through the umbilical trocar, an Endobag was introduced and into this bag, the fallopian tube with ectopic was placed. It was then removed intact, sent to pathology. A second look into the patient's abdomen revealed complete hemostasis of the pedicle of the salpingectomy on the left side. There was no bleeding. We then proceeded to remove all the instruments from the patient's abdomen. At the umbilical incision, the fascia was closed with 0 Polysorb suture in a running fashion. The skin incisions on all the trocar sites were closed with a 4-0 Monocryl stitch. All the instruments from the patient's vagina were also removed as well as a Lundy catheter. The patient tolerated the procedure well. Sponge, lap, and needle counts were correct x2. She was then transferred to the recovery room area in stable condition. [id number]/CPS #: [id number] ASHLI
== END 2017-05-22 10:35 ==
LOC: ED 17:08 → OR 19:28 → SSU 23:41
PROVIDERS: ADMIT Obstetrics & Gynecology; ATTEND Obstetrics & Gynecology
PROC: 0UT64ZZ Resection of Left Fallopian Tube, Percutaneous Endoscopic Approach (ICD-10-PCS; 2017-05-21)
PROC: 10T24ZZ Resection of Products of Conception, Ectopic, Percutaneous Endoscopic Approach (ICD-10-PCS; principal; 2017-05-21 19:22)
DX: O00.10 Tubal pregnancy without intrauterine pregnancy (principal); B19.20 Unspecified viral hepatitis C without hepatic coma; F17.210 Nicotine dependence, cigarettes, uncomplicated; F11.20 Opioid dependence, uncomplicated
CPT/HCPCS: 36415; 80053; 83605; 84702; 85025; 85610; 85730; 86703; 86803; 86850; 86900; 86901; 88305; 96374; 96375; 99283; A9270-GY; G0378; J0330; J0690; J1100; J1170; J1240; J1885; J2250; J2405; J2704; J3010